=== PATIENT | male | born 1950 | race Caucasian/White ===

== ENCOUNTER → 2020-07-28 | Outpatient (CLI) | payer MEDICARE, MEDICAID ==
[~2020-07-28] MED LIST: ALBU2.5V4 IH; ALBU2.5V52 INH; ALBU8.5H2 IH; ALPR-557 PO; ALPR0.5T PO; ALPR0.5T7 PO; ALPR0.5T72 PO; ASP325T PO; ASP81TEC PO; ATOR10TA PO; ATOR10TA66 PO; ATOR20TA66 PO; ATOR40TA70 PO; ATRV10T PO; CLOP75TA PO; CLOP75TA28 PO; DILT120C85 PO; FLUT12AE4 IH; HCTZ12.5T PO; HYDR12.56 PO; HYDR12.570 PO; HYDR1CAP2 PO; HYDR50TA3 PO; LISI40TA PO; METO-272 PO; METO100T5 PO; METO25TA2 PO; METO50TA7 PO; MULT-1029 PO; NITR0.3T6 SL; PARO40TA2 PO; PNT40TEC PO; PRED20TA PO; RANI150C11 PO; RANI150T11 PO; RANI300T4 PO; RT-ADVAIR1 IH; TIOT18CA2 IH; VITA1CAP59 PO
--- NOTE | 2020-07-28 12:26 | Diagnostic Imaging Report ---
INDICATION: Painful left neck lump. TECHNIQUE: Multiple Real-time grayscale sonographic images were obtained of the soft tissues of the neck. CORRELATION STUDY: None. FINDINGS: Imaging at the area of palpable concern demonstrates a somewhat complex heterogeneous mass to be present. It is undetermined whether this is associated with the submandibular gland or not. There is vascularity. This measures 4.4 x 3.5 x 2.7 cm. IMPRESSION: There does appear to be an indeterminate complex mass in the region of the left submandibular gland. It is undetermined whether this is associated with the submandibular gland or just adjacent to it. While this could reflect an asymmetric submandibular gland, other mass lesions including potential neoplasm is definitely in the differential. Correlation with contrast-enhanced CT imaging of the soft tissues of the neck would be recommended. Dictated by: Dictated on workstation # [id number]
== END ==
LOC: RAD 09:51
PROVIDERS: ATTEND Nurse Practitioner Community Health
DX: R59.9 Enlarged lymph nodes, unspecified (principal)
CPT/HCPCS: 76536

== ENCOUNTER → 2020-08-10 | Outpatient (CLI) | payer MEDICARE, MEDICAID ==
[~2020-08-10] MED LIST changes: +HOLD METFORMIN - RECEIVED CONTRAST 20 ML VIAL IV SCH; +IOHEXOL 350 MG/ML 100 ML (OMNIPAQUE 350) VIAL IV ONE; +NS 100 ML (IVPB) BAG IV ONE
[2020-08-10 08:29] LABS: ALANINE AMINOTRANSFERASE 13 U/L (0-55); ALBUMIN 4.1 GM/DL (3.2-4.5); ALKALINE PHOSPHATASE 68 U/L (40-136); BILIRUBIN,TOTAL 0.4 MG/DL (0.1-1.0); BUN/CREATININE RATIO 20; CALCIUM 8.8 MG/DL (8.5-10.1); CARBON DIOXIDE 22 MMOL/L (21-32); CHLORIDE 105 MMOL/L (98-107); CREATININE SERUM 1.05 MG/DL (0.60-1.30); GFR ESTIMATED > 60; GLUCOSE 129 MG/DL (70-105); SODIUM 139 MMOL/L (135-145); TOTAL PROTEIN 7.4 GM/DL (6.4-8.2)
--- NOTE | 2020-08-10 09:18 | Diagnostic Imaging Report ---
PROCEDURE: CT neck soft tissue with contrast. TECHNIQUE: Multiple contiguous axial images were obtained through the neck after the administration of contrast. Auto Exposure Controls were utilized during the CT exam to meet ALARA standards for radiation dose reduction. INDICATION: Lump on the left side of the neck under the jaw line for 6 weeks. COMPARISON: 07/28/2020. FINDINGS: A pathologically enlarged heterogeneous lymph node is seen in the left level 2 station measuring 3.1 x 3.1 cm. Additional prominent lymph nodes are seen in the left, with the next largest lymph node posterior to this in the level 2 station measuring 1.0 cm. No lymphadenopathy is appreciated on the right. The posterior nasopharynx and oropharynx demonstrate appropriate symmetry. There is no displacement of the parapharyngeal fat planes. There is no abnormal process evident within the prevertebral or retropharyngeal space. There is no evidence of abnormal thickening of the epiglottis or aryepiglottic folds. The vocal folds appear symmetric. The parotid, submandibular and thyroid gland are unremarkable. The vascular structures the neck demonstrate no evidence of high-grade stenosis on this nondedicated exam. The visualized lung apices are clear. The visualized intracranial contents demonstrate no evidence of pathologic intracranial enhancement or intracranial mass effect. Visualized orbital contents are unremarkable. The visualized paranasal sinuses are clear. The mastoids and middle ears are clear. No acute osseous abnormality in the cervical spine. Advanced degenerative changes are present in the cervical spine. The craniocervical junction is intact. IMPRESSION: 1. Pathologically enlarged heterogeneous lymph node in the left level 2 station. No primary mass is seen in the aerodigestive tract. This appearance can be seen with HPV related oropharyngeal squamous cell carcinoma. Recommend tissue sampling for pathology and direct visualization of the aerodigestive tract for occult mucosal lesion. Dictated by: Dictated on workstation # [id number]
== END ==
LOC: RAD 08:45
PROVIDERS: ATTEND Nurse Practitioner Community Health
DX: R59.0 Localized enlarged lymph nodes (principal)
CPT/HCPCS: 36415; 70491; 80053

== ENCOUNTER → 2020-09-07 | Day surgery (SDC) | payer MEDICARE, MEDICAID ==
[~2020-09-07] VITALS: Ht 177.8 cm; Wt 111.4 kg
[~2020-09-07] MED LIST changes: -HOLD METFORMIN - RECEIVED CONTRAST 20 ML VIAL IV SCH; -IOHEXOL 350 MG/ML 100 ML (OMNIPAQUE 350) VIAL IV ONE; +LIDOCAINE 1% INJ 20 ML 20 ML VIAL INJ ONE; -NS 100 ML (IVPB) BAG IV ONE
--- NOTE | 2020-09-07 10:39 | Diagnostic Imaging Report ---
INDICATION: Left neck mass. Patient returns for ultrasound-guided biopsy. Patient brought to the procedure and placed on the table in the supine position. Ultrasound imaging of the left neck was performed to evaluate appropriate entry site. The left neck was then prepped and draped in usual sterile fashion. A small amount of 1% lidocaine was utilized for local anesthesia. A total of 4 core biopsies were obtained of the hypoechoic mass in the left submandibular location utilizing a 20-gauge Temno needle. Hemostasis was obtained using manual compression. Patient tolerated the procedure well and left the department in stable condition. IMPRESSION: Successful ultrasound-guided core biopsy of left submandibular mass. Pathology results are currently pending. Dictated by: Dictated on workstation # [id number]
== END ==
LOC: RAD 10:00
PROVIDERS: ATTEND Surgery
DX: R22.1 Localized swelling, mass and lump, neck (principal); Z88.5 Allergy status to narcotic agent
CPT/HCPCS: 76942; 88305

== ENCOUNTER → 2020-11-11 | Outpatient (CLI) | payer MEDICARE, MEDICAID ==
[~2020-11-11] MED LIST changes: +CATHETER FLUSH 10 ML SYR IV PRN; +HOLD METFORMIN - RECEIVED CONTRAST 20 ML VIAL IV SCH; +IOHEXOL 350 MG/ML 100 ML (OMNIPAQUE 350) VIAL IV ONE; -LIDOCAINE 1% INJ 20 ML 20 ML VIAL INJ ONE; +NS 100 ML (IVPB) BAG IV ONE
[2020-11-11 14:43] LABS: BUN/CREATININE RATIO 18; CREATININE SERUM 1.03 MG/DL (0.60-1.30); GFR ESTIMATED > 60
--- NOTE | 2020-11-11 17:15 | Diagnostic Imaging Report ---
PROCEDURE: CT neck soft tissue with contrast. TECHNIQUE: Multiple contiguous axial images were obtained through the neck after the administration of contrast. Auto Exposure Controls were utilized during the CT exam to meet ALARA standards for radiation dose reduction. INDICATION: Left neck mass. COMPARISON: CT neck with IV contrast from 08/10/2020. Ultrasound-guided neck biopsy of 09/07/2020. FINDINGS: Again seen is the enhancing mass in the left neck deep to the sternocleidomastoid and anterior to the carotid bifurcation measuring approximately 2.0 x 2.4 x 4.0 cm (LR x AP x SI). This mass previously measured approximately 3.1 x 3.1 x 4.4 cm when measured in a similar fashion. There remain low-attenuation foci centrally within the mass, consistent with necrosis. The traversing external jugular vein is patent. The major salivary glands are negative. The floor of the mouth, tongue base, and epiglottis are normal. No retropharyngeal fluid. No suspicious mass or enhancement is identified within the pharynx or larynx. No acute osseous findings. [id number] spondylotic changes in the cervical spine are greatest at C5-C7. Emphysematous changes in the lung apices. IMPRESSION: Since the prior exam, there has been some decrease in size of the centrally necrotic mass in the left neck, described above. This remains suspicious for malignancy. No new cervical lymphadenopathy is identified. Dictated by: Dictated on workstation # [id number]
== END ==
LOC: RAD 14:45
PROVIDERS: ATTEND Surgery
DX: R22.1 Localized swelling, mass and lump, neck (principal)
CPT/HCPCS: 36415; 70491; 82565; 84520

== ENCOUNTER → 2020-12-10 | Outpatient (CLI) | payer MEDICARE, MEDICAID ==
[~2020-12-10] MED LIST changes: -CATHETER FLUSH 10 ML SYR IV PRN; -HOLD METFORMIN - RECEIVED CONTRAST 20 ML VIAL IV SCH; -IOHEXOL 350 MG/ML 100 ML (OMNIPAQUE 350) VIAL IV ONE; -NS 100 ML (IVPB) BAG IV ONE
== END ==
LOC: LABNPT 08:32
PROVIDERS: ATTEND Pediatrics
DX: Z01.812 Encounter for preprocedural laboratory examination (principal); Z20.822 Contact with and (suspected) exposure to COVID-19
CPT/HCPCS: 87635

== ENCOUNTER → 2021-08-12 | Outpatient (CLI) | payer MEDICARE, MEDICAID ==
[~2021-08-12] MED LIST changes: +HYDR50TA6 PO; +LISI40TA9 PO
== END ==
LOC: CARD 08:36
PROVIDERS: ATTEND Internal Medicine Cardiovascular Disease
DX: I11.9 Hypertensive heart disease without heart failure (principal); I25.10 Atherosclerotic heart disease of native coronary artery without angina pectoris
CPT/HCPCS: 93306